=== PATIENT | female | born 1970 | race Caucasian/White ===

== ENCOUNTER 2017-06-27 00:58 | Emergency (ER) | payer SELFPAY ==
--- NOTE | 2017-06-27 01:19 | ED.PDOC ---
History of Present Illness - General Chief Complaint: Upper Extremity Injury Stated Complaint: left arm pain with chest pain Time Seen by Provider: 06/27/17 01:15 Source: patient, RN notes reviewed, Vital Signs reviewed Additional Information: Pt states she needs a work excuse for Wednesday and Wednesday. 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 She says she has been dealing with this pain for about 2 weeks and sometimes it radiates to her chest, making it hard to breathe. Currently her main complaint is left elbow pain. - History of Present Illness Timing/Duration: other - about 2 weeks Severity: moderate Improving Factors: nothing Worsening Factors: movement - and lifting Associated Symptoms: chest pain - occasionally, shortness of breath - occasionally Allergies/Adverse Reactions: Allergies NO KNOWN ALLERGY Allergy (Verified 06/27/17 01:58) Home Medications: Ambulatory Orders predniSONE 40 mg PO DAILY 5 Days #10 tab 06/27/17 Review of Systems - Review of Systems Constitutional: States: no symptoms reported EENTM: States: no symptoms reported Respiratory: States: no symptoms reported Cardiology: States: no symptoms reported - currently, chest pain - on occasion Gastrointestinal/Abdominal: States: no symptoms reported Genitourinary: States: no symptoms reported Musculoskeletal: States: see HPI - left elbow pain Skin: States: no symptoms reported Neurological: States: no symptoms reported Endocrine: States: no symptoms reported Hematologic/Lymphatic: States: no symptoms reported Past Medical History (General) - Patient Medical History Hx Seizures: No Hx Stroke: No Hx Dementia: No Hx Asthma: No Hx of COPD: No Hx Cardiac Disorders: No Hx Congestive Heart Failure: No Hx Pacemaker: No Hx Hypertension: No Hx Thyroid Disease: No Hx Diabetes: No Hx Gastroesophageal Reflux: No Hx Renal Disease: No Hx Cancer: No Hx of HIV: No Hx Hepatitis C: No Hx MRSA: No Hx Other PMH: Yes - Patient reports she has been diagnosed with Rheumatoid Arthritis - Vaccination History Hx Tetanus, Diphtheria Vaccination: No Hx Influenza Vaccination: No Hx Pneumococcal Vaccination: No - Social History Hx Tobacco Use: No Hx Alcohol Use: No Hx Substance Use: No Hx Substance Use Treatment: No Hx Depression: No Hx Physical Abuse: No Hx Emotional Abuse: No Hx Suspected Abuse: No - Female History Patient : No Family Medical History - Family History Mother Living Status: Still Living Hx Family Hypertension: Yes Physical Exam - Physical Exam General Appearance: No apparent distress - at rest, Obese Eye Exam: bilateral normal Ears, Nose, Throat: hearing grossly normal, normal ENT inspection, normal pharynx Neck: non-tender, full range of motion, supple, normal inspection Respiratory: normal breath sounds, no respiratory distress, no accessory muscle use Cardiovascular/Chest: normal peripheral pulses, regular rate, rhythm Gastrointestinal/Abdominal: non tender, soft Back Exam: normal inspection, no CVA tenderness Extremity: normal range of motion, normal inspection, other - Mild Tender to Palpation left elbow. Neurologic: medical technologist II-XII nml as tested, no motor/sensory deficits, alert, normal mood/affect, oriented x 3 Skin Exam: normal color, warm/dry Lymphatic: no adenopathy Progress - Progress Progress: 06/27/17 01:22 Suspect MSK etiology of symptoms. However, given occasional c/o Chest pain and SOB will assess for cardiovascular etiology with d-dimer, cardiac enzymes, and CXR. If essentially normal will treat with steroid burst given history of RA. 06/27/17 02:12 Labs and CXR normal. Will d/c with Rx for Prednisone burst and a work excuse. 06/27/17 02:15 CXR Report: Official report pending. My impression - No acute cardiopulmonary process noted. - Results/Orders Results/Orders: 06/27/17 01:16 ESR [ERYTHROCYTE SEDIMENTATION RATE] Stat Chest,2 Views [RAD] Stat Laboratory Results - last 24 hr 06/27/17 06/27/17 06/27/17 01:16 01:16 01:16 WBC 6.7 RBC 4.70 Hgb 14.2 Hct 41.3 MCV 88.0 MCH 30.2 MCHC 34.3 RDW 15.5 H Plt Count 263 MPV 7.6 Absolute Neuts (auto) 4.20 Absolute Lymphs (auto) 1.80 Absolute Monos (auto) 0.50 Absolute Eos (auto) 0.10 Absolute Basos (auto) 0.00 Neutrophils % 62.8 Lymphocytes % 26.8 Monocytes % 8.0 Eosinophils % 1.7 Basophils % 0.7 D-Dimer, Quantitative < 230 Sodium 138 Potassium 4.2 Chloride 102 Carbon Dioxide 28 Anion Gap 12.2 BUN 14 Creatinine 1.01 BUN/Creatinine Ratio 13.9 Random Glucose 123 H Serum Osmolality 277.5 Calcium 9.2 Total Bilirubin 0.5 AST 28 ALT 32 Alkaline Phosphatase 61 Creatine Kinase CK-MB (CK-2) CK-MB (CK-2) % Troponin I C-Reactive Protein 0.8 Serum Total Protein 7.5 Albumin 4.1 Globulin 3.4 Albumin/Globulin Ratio 1.2 06/27/17 01:17 WBC RBC Hgb Hct MCV MCH MCHC RDW Plt Count MPV Absolute Neuts (auto) Absolute Lymphs (auto) Absolute Monos (auto) Absolute Eos (auto) Absolute Basos (auto) Neutrophils % Lymphocytes % Monocytes % Eosinophils % Basophils % D-Dimer, Quantitative Sodium Potassium Chloride Carbon Dioxide Anion Gap BUN Creatinine BUN/Creatinine Ratio Random Glucose Serum Osmolality Calcium Total Bilirubin AST ALT Alkaline Phosphatase Creatine Kinase 107 CK-MB (CK-2) 2.4 CK-MB (CK-2) % Not Reportable Troponin I < 0.02 C-Reactive Protein Serum Total Protein Albumin Globulin Albumin/Globulin Ratio 06/27/17 01:05 Temperature 98.8 F Pulse Rate [ 84 monitor] Respiratory 16 Rate Blood Pressure 146/85 [Right Arm] O2 Sat by Pulse 100 Oximetry Departure - Departure Clinical Impression: Left elbow pain Time of Disposition: 02:24 Disposition: Discharge to Home or Self Care Condition: Good Departure Forms: ED Discharge - Pt. Copy, Patient Portal Self Enrollment Instructions: DI for Arm Pain Prescriptions: predniSONE 40 mg PO DAILY 5 Days #10 tab Home Medications: Ambulatory Orders predniSONE 40 mg PO DAILY 5 Days #10 tab 06/27/17 Additional Instructions: Work Excuse for Wednesday and Wednesday. Take medicine as prescribed. Follow-up with Primary Care Provider if symptoms persist in 3 to 5 days or return to ER sooner if condition worsens.
[2017-06-27 01:58] VITALS: BP 146/85; TEMP 98.8; O2SAT 100
--- NOTE | 2017-06-27 02:42 | RAD ---
EXAM DESCRIPTION: Chest,2 Views CLINICAL HISTORY: chest pain COMPARISON: 06/11/2016 FINDINGS: Frontal and lateral views of the chest. The cardiomediastinal silhouette has normal size and contour. No consolidation, pneumothorax, or pleural effusion. No displaced rib fractures identified. Upper abdominal soft tissues are unremarkable. IMPRESSION: 1. No acute pulmonary process identified. Electronically signed by: Milton Kellogg 06/27/2017 2:41 AM [facility]
== END 2017-06-27 02:32 | disposition home or self-care (01) ==
LOC: ER 00:58
DX: M25.522 Pain in left elbow (principal); M06.9 Rheumatoid arthritis, unspecified; R07.9 Chest pain, unspecified

== ENCOUNTER 2018-06-19 12:22 | Emergency (ER) | payer SELFPAY ==
--- NOTE | 2018-06-19 13:31 | ED.PDOC ---
History of Present Illness - General Chief Complaint: Skin/Abrasion/Tear Stated Complaint: skin eruption Time Seen by Provider: 06/19/18 13:25 Source: patient Exam Limitations: no limitations - History of Present Illness Initial Comments: Carlyn Thayer 48 y/o female stated that she has Rheumatoid Arthritis since 2009 not on any treatment couldn't afford cost came to ER with skin braek out for the last 1 1/2 months seen at urgent care and was given Bactrim -DS which temporarily made the redness go away but lesion recurred again and also for the last 4 days has some chest and neck discomfort as well as not feeling well. Timing/Duration: other - see hpi Severity: moderate Improving Factors: nothing Worsening Factors: nothing Associated Symptoms: other - see hpi Allergies/Adverse Reactions: Allergies NO KNOWN ALLERGY Allergy (Verified 06/27/17 01:58) Home Medications: Ambulatory Orders Aspirin-Caffeine [Bc Fast Pain Relief Arthr 1000-65 mg] 1 pow PO DAILY PRN 06/19/18 Bismuth Subsalicylate [Pepto-Bismol] 262 mg PO BID PRN 06/19/18 Doxycycline Hyclate 100 mg PO BID 10 Days #20 cap 06/19/18 Terbinafine HCl [Lamisil] 250 mg PO DAILY 14 Days #14 tab 06/19/18 Review of Systems - Review of Systems Constitutional: States: see HPI, malaise Cardiology: States: see HPI Skin: States: see HPI All other Systems: Reviewed and Negative, No Change from Baseline Past Medical History (General) - Patient Medical History Hx Seizures: No Hx Stroke: No Hx Dementia: No Hx Asthma: No Hx of COPD: No Hx Cardiac Disorders: No Hx Congestive Heart Failure: No Hx Pacemaker: No Hx Hypertension: No Hx Thyroid Disease: No Hx Diabetes: No Hx Gastroesophageal Reflux: No Hx Renal Disease: No Hx Cancer: No Hx of HIV: No Hx Hepatitis C: No Hx MRSA: No Hx Other PMH: Yes - Rheumatoid arthritis Surgical History: other - btl - Vaccination History Hx Tetanus, Diphtheria Vaccination: No Hx Influenza Vaccination: No Hx Pneumococcal Vaccination: No - Social History Hx Tobacco Use: No Hx Alcohol Use: No Hx Substance Use: No Hx Substance Use Treatment: No Hx Depression: No Hx Physical Abuse: No Hx Emotional Abuse: No Hx Suspected Abuse: No - Female History Patient is a Female of Child Bearing Age (10 -59 yrs old): Yes Hx Last Menstrual Period: 06/11/18 Patient : No Family Medical History - Family History Mother Living Status: Still Living Hx Family Hypertension: Yes Hx Family;Other: rheumatoid arthritis Physical Exam - Physical Exam General Appearance: Alert, Comfortable, No apparent distress Eye Exam: bilateral normal Ears, Nose, Throat: hearing grossly normal, normal ENT inspection, normal pharynx Neck: supple, normal inspection Respiratory: chest non-tender, lungs clear, normal breath sounds Cardiovascular/Chest: normal peripheral pulses, regular rate, rhythm, no murmur, other - breast-No breast mass palpated bilaterally,no adenopathy axillary bilaterally Peripheral Pulses: radial,right: 2+, radial,left: 2+ Gastrointestinal/Abdominal: normal bowel sounds, non tender, soft Back Exam: no CVA tenderness, no vertebral tenderness Extremity: no pedal edema, no calf tenderness Neurologic: alert, oriented x 3 Skin Exam: normal color, warm/dry, other - cicular erythemaous skin eruption with cental scabbing pustular drainage breast,chest and abdomen Progress - Progress Progress: 06/19/18 13:36 Vital Signs - 8 hr 06/19/18 12:30 Temperature 98.1 F Pulse Rate [ 76 Left Arm] Respiratory 20 Rate Blood Pressure 161/115 [Left Arm] O2 Sat by Pulse 99 Oximetry - Results/Orders Results/Orders: 06/19/18 13:36 URINALYSIS Stat 06/19/18 13:45 EKG STAT Laboratory Results - last 24 hr 06/19/18 13:50 WBC 7.2 RBC 4.70 Hgb 13.9 Hct 41.0 MCV 87.3 MCH 29.5 MCHC 33.8 RDW 15.8 H Plt Count 243 MPV 7.5 Absolute Neuts (auto) 4.80 Absolute Lymphs (auto) 1.50 Absolute Monos (auto) 0.70 Absolute Eos (auto) 0.10 Absolute Basos (auto) 0.10 Neutrophils % 67.3 Lymphocytes % 20.9 Monocytes % 9.1 H Eosinophils % 1.7 Basophils % 1.0 PT 9.2 INR 0.92 PTT (SP) 24.7 Sodium 139 Potassium 4.1 Chloride 105 Carbon Dioxide 28 Anion Gap 10.1 L BUN 19 H Creatinine 0.84 BUN/Creatinine Ratio 22.6 H Random Glucose 109 H Serum Osmolality 280.4 Calcium 9.3 Magnesium 1.8 Total Bilirubin 0.5 Direct Bilirubin < 0.1 Indirect Bilirubin 0.4 AST 23 ALT 26 Alkaline Phosphatase 77 Creatine Kinase 112 CK-MB (CK-2) 3.2 CK-MB (CK-2) % Not Reportable Troponin I < 0.02 B-Natriuretic Peptide 8.7 Serum Total Protein 7.4 Albumin 3.9 Discuus all test result with patient and advised the importance of follow up with primary Md for referral to set up mechanic automatic line and medical logistics specialist - EKG/XRAY/CT EKG: Sinus, no ST T wave changes Comments: HR-68 XRAY: chest - no acute abnormality Departure - Departure Clinical Impression: Skin lesion of chest wall, History of rheumatoid arthritis, Chest wall discomfort Time of Disposition: 14:43 Disposition: Discharge to Home or Self Care Condition: Fair Departure Forms: ED Discharge - Pt. Copy, Patient Portal Self Enrollment Instructions: Skin Rash (DC), Rheumatoid Arthritis (DC), Rheumatoid Arthritis Prescriptions: Doxycycline Hyclate 100 mg PO BID 10 Days #20 cap Terbinafine HCl [Lamisil] 250 mg PO DAILY 14 Days #14 tab Home Medications: Ambulatory Orders Aspirin-Caffeine [Bc Fast Pain Relief Arthr 1000-65 mg] 1 pow PO DAILY PRN 06/19/18 Bismuth Subsalicylate [Pepto-Bismol] 262 mg PO BID PRN 06/19/18 Doxycycline Hyclate 100 mg PO BID 10 Days #20 cap 06/19/18 Terbinafine HCl [Lamisil] 250 mg PO DAILY 14 Days #14 tab 06/19/18 Additional Instructions: Need to sign up with primary Md [facility] [phone] for referral to medical logistics specialist and set up mechanic automatic line
--- NOTE | 2018-06-19 14:13 | RAD ---
EXAM DESCRIPTION: Chest,1 View CLINICAL HISTORY: 48 years Female pain COMPARISON: Two-view chest 06/19/2018 TECHNIQUE: A single frontal projection of the chest is obtained. FINDINGS: Heart: Allowing for magnification factors related to AP portable technique and large body habitus , the heart is normal in size and configuration . Vasculature: There is minimal tortuosity and atherosclerosis of the aorta. . The pulmonary vascularity is normal. Mediastinum: Unremarkable []. No evidence of mass or adenopathy. Lungs: The lungs are essentially clear with no focal consolidation, allowing for underpenetrated technique. Pleural spaces: No evidence of pleural fluid or pneumothorax. Osseous structures: There is no evidence of acute fracture, osseous destruction or osteoblastic lesions. Tubes and catheters: None. Upper abdomen: No acute findings. IMPRESSION: No acute cardiopulmonary abnormality. Remainder of findings as described above. Electronically signed by: Moriah Bennett MD 06/19/2018 2:11 PM [facility]
[2018-06-19 14:41] VITALS: BP 120/70; TEMP 97.5; O2SAT 95
== END 2018-06-19 14:55 | disposition home or self-care (01) ==
LOC: ER 12:22
DX: L98.9 Disorder of the skin and subcutaneous tissue, unspecified (principal); R07.1 Chest pain on breathing; M06.9 Rheumatoid arthritis, unspecified; M54.2 Cervicalgia

== ENCOUNTER 2018-07-16 10:14 | Emergency (ER) | payer SELFPAY ==
--- NOTE | 2018-07-16 11:14 | RAD ---
EXAM DESCRIPTION: Chest,2 Views CLINICAL HISTORY: 48 years Female, skin ulcers, nodules over chest COMPARISON: Portable chest dated June 19, 2018 and 2 view chest dated June 27, 2017. FINDINGS: Heart size is normal. Hilar and mediastinal structures appear within normal limits. The lungs are clear. No evidence of pleural effusion. Regional bony structures appear intact as visualized, with note of minimal chronic changes in the dorsal spine. No significant interval change is seen compared to the last exam. IMPRESSION: No evidence of acute cardiopulmonary disease. Electronically signed by: Parag Burgess MD 07/16/2018 11:13 AM [facility]
[2018-07-16] MEDS ORDERED: LIDOCAINE 1% W/ EPINEPHRINE 20 ML VIAL INJ ONE (11:37)
[2018-07-16] MEDS ORDERED: IODOFORM 1/4 INCH 1 EA BTTL TOP ONE (11:38)
[2018-07-16] MEDS ORDERED: HYDROcodone 7.5MG/APAP 325MG 1 EA TAB PO ONE (11:41)
[2018-07-16] MEDS ORDERED: PENICILLIN BENZATHINE 1.2 MU 1.2 MU/2 ML SYG IM ONE (11:55)
[2018-07-16] MEDS ORDERED: VANCOMYCIN HCL INJ 2,000 MG in SODIUM CHLORIDE 0.9% 500ML 500 ML IVPB ONE (11:56)
[2018-07-16] MEDS ORDERED: VANCOMYCIN HCL INJ 1,000 MG VIAL IVPB ONE (11:59)
[2018-07-16] MEDS ORDERED: SODIUM CHLORIDE 0.9% 500ML 500 ML ONE (11:59)
[2018-07-16] MEDS ORDERED: FLUCONAZOLE 100 MG TAB PO ONE (13:18)
[2018-07-16 14:37] VITALS: TEMP 98.4
--- NOTE | 2018-07-16 15:14 | ED.PDOC ---
History of Present Illness - General Chief Complaint: Skin/Abrasion/Tear Stated Complaint: Multiple skin irritations Time Seen by Provider: 07/16/18 10:35 Source: patient Exam Limitations: no limitations - History of Present Illness Initial Comments: the patient is a 48-year-old female presenting to the emergency room secondary to numerous skin lesions along with starting to feel better in general over the last 24 hours. The patient has had a skin lesion to the right breast for the last 2-3 weeks that appears to be a drying up ulcer at this point. However additionally over the last week she has had formation of a small area of cellulitis at the tip of her right shoulder as well as a large area approximately 12 cm in diameter over the left upper chest wall.this area does appear to have a small amount of fluctuance and abscess formation by ultrasound. The patient reports she has a history of rheumatoid arthritis. Timing/Duration: unsure Severity: moderate Improving Factors: nothing Worsening Factors: nothing Associated Symptoms: denies symptoms Allergies/Adverse Reactions: Allergies NO KNOWN ALLERGY Allergy (Verified 06/27/17 01:58) Home Medications: Ambulatory Orders Sulfa/Trimeth 800/160 (Ds) Tab [Bactrim DS Tab] 1 ea PO BID #28 tab 07/16/18 rifAMPin [Rifampin] 300 mg PO BID #28 cap 07/16/18 Review of Systems - Review of Systems Constitutional: States: malaise EENTM: States: no symptoms reported Respiratory: States: no symptoms reported Cardiology: States: no symptoms reported Gastrointestinal/Abdominal: States: no symptoms reported Genitourinary: States: no symptoms reported Musculoskeletal: States: no symptoms reported Skin: States: see HPI Neurological: States: no symptoms reported Endocrine: States: no symptoms reported All other Systems: No Change from Baseline Past Medical History (General) - Patient Medical History Hx Seizures: No Hx Stroke: No Hx Dementia: No Hx Asthma: No Hx of COPD: No Hx Cardiac Disorders: No Hx Congestive Heart Failure: No Hx Pacemaker: No Hx Hypertension: Yes Hx Thyroid Disease: No Hx Diabetes: No Hx Gastroesophageal Reflux: Yes Hx Renal Disease: No Hx Cancer: No Hx of HIV: No Hx Hepatitis C: No Hx MRSA: No Surgical History: other - Vaccination History Hx Tetanus, Diphtheria Vaccination: No Hx Influenza Vaccination: Yes - 2018 Hx Pneumococcal Vaccination: No - Social History Hx Tobacco Use: Yes Hx Alcohol Use: Yes - Occasional use Hx Substance Use: No Hx Substance Use Treatment: No Hx Depression: No Hx Physical Abuse: No Hx Emotional Abuse: No Hx Suspected Abuse: No - Female History Patient is a Female of Child Bearing Age (10 -59 yrs old): Yes Hx Last Menstrual Period: 06/11/18 Patient : No Family Medical History - Family History Mother Living Status: Still Living Hx Family Hypertension: Yes Hx Family;Other: rheumatoid arthritis Physical Exam - Physical Exam General Appearance: Alert, Comfortable, No apparent distress Eye Exam: bilateral normal Ears, Nose, Throat: hearing grossly normal, normal ENT inspection, normal pharynx Neck: full range of motion, supple Respiratory: lungs clear, normal breath sounds, no respiratory distress, no acc essory muscle use Cardiovascular/Chest: normal peripheral pulses, regular rate, rhythm, no edema Peripheral Pulses: radial,right: 2+, radial,left: 2+, dorsalis pedis,right: 2+, dorsalis pedis,left: 2+ Gastrointestinal/Abdominal: non tender, soft Rectal Exam: deferred Back Exam: no CVA tenderness, no vertebral tenderness Extremity: normal range of motion, non-tender, normal inspection, no pedal edema Neurologic: orthotics assistant II-XII nml as tested, alert, normal mood/affect, oriented x 3 Skin Exam: other - there is a cellulitis involving the right shoulder, left upper chest small area of cellulitis to the left lower back and healing cellulitis to the right breast with residual ulcer. Comments: Vital Signs - 24 hr 07/16/18 07/16/18 07/16/18 10:25 11:25 12:21 Temperature 99.4 F 99.0 F 98.9 F Pulse Rate [ 66 68 66 Right Arm] Respiratory 16 16 18 Rate Blood Pressure 120/97 125/79 116/69 [Right Arm] O2 Sat by Pulse 96 97 97 Oximetry 07/16/18 07/16/18 13:25 14:25 Temperature 98.9 F 98.4 F Pulse Rate [ 61 86 Right Arm] Respiratory 18 18 Rate Blood Pressure 110/59 118/82 [Right Arm] O2 Sat by Pulse 98 97 Oximetry Progress - Progress Progress: 07/16/18 15:15 the patient is a 48-year-old female presenting to the emergency room with multiple areas of cellulitis and 1 area associated with an abscess to the left anterior chest. Blood culture has been taken. Needle aspiration of the small abscess with extensive surrounding cellulitis of the left upper chest is being sent for culture. The patient has received a dose of Bicillin LA here IM and a dose of IV vancomycin here. She is going to be written for Bactrim twice daily and rifampin twice daily for 14 days given the duration of her apparent infection. If the ulcer is failing to improve over the next couple of weeks then a biopsy with a primary care doctor or fundraising director may need to be done. I do recommend that she use Neosporin ointment on the ulcer 3 times daily, and cover it with a Band-Aid. She has been encouraged to trace out the edges of the redness to her left anterior chest wall to make sure it is improving over the next few days. Additionally she can take a picture with her smart phone to make sure that it is improving. She has been informed that given the extensive area of cellulitis, a new abscess may go ahead and form in the area in spite of adequate antibiotic use. If that becomes the case then it will need to be drained as well. ER warnings were given for any worsening. follow-up with your primary care doctor later this week. residual note: Risks and benefits of incision and drainage are explained and patient agrees to proceed. Ultrasound was used prior to anju the site for incision. The area was cleaned with alcohol swab. #15 blade scalpel was used to make a 1-1/2 cm incision. Hemostats were used to dissect down to the level of the abscess. Only about 2-3 cc of pus were obtained. No packing is required. Dressing was put in place. Patient tolerated the procedure well. Estimated blood loss less than 3 cc. - Results/Orders Results/Orders: Vital Signs - 24 hr 07/16/18 07/16/18 07/16/18 10:25 11:25 12:21 Temperature 99.4 F 99.0 F 98.9 F Pulse Rate [ 66 68 66 Right Arm] Respiratory 16 16 18 Rate Blood Pressure 120/97 125/79 116/69 [Right Arm] O2 Sat by Pulse 96 97 97 Oximetry 07/16/18 07/16/18 13:25 14:25 Temperature 98.9 F 98.4 F Pulse Rate [ 61 86 Right Arm] Respiratory 18 18 Rate Blood Pressure 110/59 118/82 [Right Arm] O2 Sat by Pulse 98 97 Oximetry Laboratory Tests 07/16/18 07/16/18 07/16/18 10:46 10:46 10:46 WBC 15.0 H RBC 4.56 Hgb 13.4 Hct 40.2 MCV 88.1 MCH 29.4 MCHC 33.3 RDW 15.3 H Plt Count 275 MPV 7.7 Absolute Neuts (auto) 12.00 H Absolute Lymphs (auto) 1.80 Absolute Monos (auto) 1.20 H Absolute Eos (auto) 0.00 Absolute Basos (auto) 0.10 Neutrophils % 79.9 H Lymphocytes % 11.8 L Monocytes % 7.8 Eosinophils % 0.1 L Basophils % 0.4 PT 9.8 INR 0.98 PTT (SP) 28.1 D-Dimer, Quantitative 0.57 H* Sodium 135 Potassium 3.8 Chloride 100 L Carbon Dioxide 25 Anion Gap 13.8 BUN 10 Creatinine 0.73 BUN/Creatinine Ratio 13.7 Random Glucose 100 Serum Osmolality 269.2 L Calcium 8.9 Total Bilirubin 0.8 AST 41 ALT 46 Alkaline Phosphatase 78 Serum Total Protein 7.4 Albumin 3.7 Globulin 3.7 H Albumin/Globulin Ratio 1.0 L TSH 4.45 Urine Color Urine Appearance Urine pH Ur Specific Ilfeld Urine Protein Urine Glucose (UA) Urine Ketones Urine Blood Urine Nitrite Urine Bilirubin Urine Urobilinogen Ur Leukocyte Esterase Urine RBC Urine WBC Ur Epithelial Cells Urine Bacteria Urine Mucus Urine HCG, Qual 07/16/18 07/16/18 10:46 11:20 WBC RBC Hgb Hct MCV MCH MCHC RDW Plt Count MPV Absolute Neuts (auto) Absolute Lymphs (auto) Absolute Monos (auto) Absolute Eos (auto) Absolute Basos (auto) Neutrophils % Lymphocytes % Monocytes % Eosinophils % Basophils % PT INR PTT (SP) D-Dimer, Quantitative Sodium Potassium Chloride Carbon Dioxide Anion Gap BUN Creatinine BUN/Creatinine Ratio Random Glucose Serum Osmolality Calcium Total Bilirubin AST ALT Alkaline Phosphatase Serum Total Protein Albumin Globulin Albumin/Globulin Ratio TSH Urine Color Khushboo H Urine Appearance Clear Urine pH 5.5 Ur Specific Ilfeld 1.025 Urine Protein Negative Urine Glucose (UA) Negative Urine Ketones 80 H Urine Blood Negative Urine Nitrite Negative Urine Bilirubin Small H Urine Urobilinogen 1.0 Ur Leukocyte Esterase Negative Urine RBC 0 Urine WBC 0 Ur Epithelial Cells 1-3 Urine Bacteria 0 Urine Mucus Small Urine HCG, Qual Negative chest x-ray shows no evidence of acute pathology. Departure - Departure Clinical Impression: Skin lesion of chest wall Disposition: Discharge to Home or Self Care Condition: Fair Departure Forms: ED Discharge - Pt. Copy, Patient Portal Self Enrollment Instructions: DI for Wound Infection Diet: regular diet Activity: increase activity as tolerated Prescriptions: rifAMPin [Rifampin] 300 mg PO BID #28 cap Sulfa/Trimeth 800/160 (Ds) Tab [Bactrim DS Tab] 1 ea PO BID #28 tab Home Medications: Ambulatory Orders Sulfa/Trimeth 800/160 (Ds) Tab [Bactrim DS Tab] 1 ea PO BID #28 tab 07/16/18 rifAMPin [Rifampin] 300 mg PO BID #28 cap 07/16/18 Additional Instructions: the patient is a 48-year-old female presenting to the emergency room with multiple areas of cellulitis and 1 area associated with an abscess to the left anterior chest. Blood culture has been taken. Needle aspiration of the small abscess with extensive surrounding cellulitis of the left upper chest is being sent for culture. The patient has received a dose of Bicillin LA here IM and a dose of IV vancomycin here. She is going to be written for Bactrim twice daily and rifampin twice daily for 14 days given the duration of her apparent infection. If the ulcer is failing to improve over the next couple of weeks then a biopsy with a primary care doctor or fundraising director may need to be done. I do recommend that she use Neosporin ointment on the ulcer 3 times daily, and cover it with a Band-Aid. She has been encouraged to trace out the edges of the redness to her left anterior chest wall to make sure it is improving over the next few days. Additionally she can take a picture with her smart phone to make sure that it is improving. She has been informed that given the extensive area of cellulitis, a new abscess may go ahead and form in the area in spite of adequate antibiotic use. If that becomes the case then it will need to be drained as well. ER warnings were given for any worsening. follow-up with your primary care doctor later this week. antibiotics are selected for staph and strep coverage which are the most likely pathogens. Cultures are being performed.
[2018-07-16 15:15] VITALS: BP 103/61; O2SAT 99
== END 2018-07-16 15:25 | disposition home or self-care (01) ==
LOC: ER 10:14
DX: L02.213 Cutaneous abscess of chest wall (principal); L03.113 Cellulitis of right upper limb; L03.312 Cellulitis of back [any part except buttock and flank]; N61.0 Mastitis without abscess; I10 Essential (primary) hypertension; K21.9 Gastro-esophageal reflux disease without esophagitis; M06.9 Rheumatoid arthritis, unspecified; Z87.891 Personal history of nicotine dependence
CPT/HCPCS: 36415; 71046; 80053; 81001; 81025; 84443; 85025; 85379; 85610; 85730; 87040; 87070; J0561; J3370; J7040

== ENCOUNTER 2019-09-22 18:23 | Emergency (ER) | payer SELFPAY ==
--- NOTE | 2019-09-22 18:47 | ED.PDOC ---
History of Present Illness - General Time Seen by Provider: 09/22/19 18:28 - History of Present Illness Initial Comments: 49 yo F PMH Rheumatoid Arthritis presents to ED c/o cough congestion sore throat intermittent nausea x 3 days. Pt. on her menses denies fever chills vomiting diarrhea chest pain sob diaphoresis. No change in diet cough disturbs rest no change in bowel or bladder admits smoking vaping and drinking admits FH HTN DM has no PMD for follow up no other c/o today. Allergies/Adverse Reactions: Allergies NO KNOWN ALLERGY Allergy (Verified 09/22/19 19:00) Home Medications: Ambulatory Orders Sulfa/Trimeth 800/160 (Ds) Tab [Bactrim DS Tab] 1 ea PO BID #28 tab 07/16/18 rifAMPin [Rifampin] 300 mg PO BID #28 cap 07/16/18 Acetaminophen [Tylenol] 650 mg PO Q6H PRN #30 tab 09/22/19 Azithromycin Tab [Zithromax Tab] 250 mg PO QDPC 5 Days #6 tab 09/22/19 Ibuprofen 600 mg PO Q6H PRN #20 tab 09/22/19 Prednisone 40 mg PO DAILY 5 Days #10 tab 09/22/19 Review of Systems - Review of Systems Constitutional: States: see HPI EENTM: States: see HPI Respiratory: States: see HPI Cardiology: States: see HPI Gastrointestinal/Abdominal: States: see HPI Genitourinary: States: see HPI Musculoskeletal: States: see HPI Skin: States: see HPI Neurological: States: see HPI Endocrine: States: see HPI All other Systems: Reviewed and Negative Past Medical History (General) - Patient Medical History Hx Seizures: No Hx Stroke: No Hx Dementia: No Hx Asthma: No Hx of COPD: No Hx Cardiac Disorders: No Hx Congestive Heart Failure: No Hx Pacemaker: No Hx Hypertension: Yes Hx Thyroid Disease: No Hx Diabetes: No Hx Gastroesophageal Reflux: Yes Hx Renal Disease: No Hx Cancer: No Hx of HIV: No Hx Hepatitis C: No Hx MRSA: No - Vaccination History Hx Tetanus, Diphtheria Vaccination: No Hx Influenza Vaccination: Yes - 2018 Hx Pneumococcal Vaccination: No - Social History Hx Tobacco Use: Yes Hx Alcohol Use: Yes - Occasional use Hx Substance Use: No Hx Substance Use Treatment: No Hx Depression: No Hx Physical Abuse: No Hx Emotional Abuse: No Hx Suspected Abuse: No - Female History Hx Last Menstrual Period: 06/11/18 Patient : No Family Medical History - Family History Mother Living Status: Still Living Hx Family Hypertension: Yes Hx Family;Other: rheumatoid arthritis Physical Exam - Physical Exam General Appearance: No apparent distress Eye Exam: bilateral normal Ears, Nose, Throat: normal ENT inspection, pharyngeal erythema Neck: non-tender, full range of motion Respiratory: normal breath sounds Cardiovascular/Chest: regular rate, rhythm Gastrointestinal/Abdominal: non tender, soft Rectal Exam: deferred Back Exam: normal inspection Extremity: normal range of motion, non-tender Neurologic: no motor/sensory deficits Skin Exam: normal color Progress - Progress Progress: 09/22/19 18:47 A/P-Pharyngitis Cough URI-cxr upreg tylenol zofran flu strep if unremarkable d/c follow up pcp tylenol ibuprofen prednisone azithromycin for the pharyngitis 09/22/19 19:21 EXAM DESCRIPTION: XR Chest,1 View CLINICAL HISTORY: cough TECHNIQUE: Single frontal view of the chest is submitted. COMPARISON: 07/16/2018 FINDINGS: Heart: The cardiothoracic silhouette is within normal limits. Lungs: No focal consolidation. Mediastinum: Unremarkable Pleura: No appreciable effusion. No pneumothorax. Bones: Intact Upper abdomen: Unremarkable IMPRESSION: No acute disease. Electronically signed by: Sully Mace MD 09/22/2019 7:03 PM CDT 09/22/19 19:59 Laboratory Tests 09/22/19 09/22/19 18:59 19:18 Urine HCG, Qual Negative Group A Strep Rapid Negative Departure - Departure Clinical Impression: Cough Pharyngitis Qualifiers: Pharyngitis/tonsillitis etiology: unspecified etiology Qualified Code(s): J02.9 - Acute pharyngitis, unspecified Upper respiratory infection Qualifiers: URI type: unspecified URI Qualified Code(s): J06.9 - Acute upper respiratory infection, unspecified Time of Disposition: 20:02 Disposition: Discharge to Home or Self Care Condition: Good Referrals: Seven Carr MD [Active Staff] - 1-2 Days Prescriptions: Acetaminophen [Tylenol] 650 mg PO Q6H PRN #30 tab PRN Reason: Pain Azithromycin Tab [Zithromax Tab] 250 mg PO QDPC 5 Days #6 tab Ibuprofen 600 mg PO Q6H PRN #20 tab PRN Reason: Pain Prednisone 40 mg PO DAILY 5 Days #10 tab Home Medications: Ambulatory Orders Sulfa/Trimeth 800/160 (Ds) Tab [Bactrim DS Tab] 1 ea PO BID #28 tab 07/16/18 rifAMPin [Rifampin] 300 mg PO BID #28 cap 07/16/18 Acetaminophen [Tylenol] 650 mg PO Q6H PRN #30 tab 09/22/19 Azithromycin Tab [Zithromax Tab] 250 mg PO QDPC 5 Days #6 tab 09/22/19 Ibuprofen 600 mg PO Q6H PRN #20 tab 09/22/19 Prednisone 40 mg PO DAILY 5 Days #10 tab 09/22/19
[2019-09-22] MEDS ORDERED: ACETAMINOPHEN 500 MG TAB PO ONE (18:48)
[2019-09-22] MEDS ORDERED: ONDANSETRON ODT 8 MG TAB SL ONE (18:57)
[2019-09-22 19:00] VITALS: TEMP 98.5
--- NOTE | 2019-09-22 19:05 | RAD ---
EXAM DESCRIPTION: XR Chest,1 View CLINICAL HISTORY: cough TECHNIQUE: Single frontal view of the chest is submitted. COMPARISON: 07/16/2018 FINDINGS: Heart: The cardiothoracic silhouette is within normal limits. Lungs: No focal consolidation. Mediastinum: Unremarkable Pleura: No appreciable effusion. No pneumothorax. Bones: Intact Upper abdomen: Unremarkable IMPRESSION: No acute disease. Electronically signed by: Sully Mace MD 09/22/2019 7:03 PM CDT
[2019-09-22 20:02] VITALS: BP 132/67; O2SAT 97
== END 2019-09-22 20:09 | disposition home or self-care (01) ==
LOC: ER 18:23
DX: J06.9 Acute upper respiratory infection, unspecified (principal); K21.9 Gastro-esophageal reflux disease without esophagitis; I10 Essential (primary) hypertension; F17.290 Nicotine dependence, other tobacco product, uncomplicated; M06.9 Rheumatoid arthritis, unspecified; Z87.891 Personal history of nicotine dependence; Z79.899 Other long term (current) drug therapy

== ENCOUNTER 2020-07-26 12:26 | Emergency (ER) | payer SELFPAY ==
[2020-07-26] MEDS ORDERED: ONDANSETRON ODT 8 MG TAB SL ONE (12:45)
--- NOTE | 2020-07-26 12:47 | ED.PDOC ---
History of Present Illness - General Time Seen by Provider: 07/26/20 12:27 Source: patient, RN notes reviewed, Vital Signs reviewed Exam Limitations: no limitations - History of Present Illness Comments: 50 yo F with hx of RA comes in with productive cough, shortness of breath, body aches, temperature 99.9, sore throat, change in taste. Works in [employer]. Had negative covid test last week. Has been feeling progressively worse for 4 days. Cough Quality/Degree: moderate, productive cough, sputum - yellow Possible Cause: no prior episodes Improving Factors: rest Worsening Factors: movement Associated Symptoms: fever/chills, headache, muscle aches, nasal congestion, nasal drainage, shortness of breath, sore throat Allergies/Adverse Reactions: Allergies NO KNOWN ALLERGY Allergy (Verified 07/26/20 13:25) Home Medications: Ambulatory Orders Penicillin V Potassium 500 mg PO BID 10 Days #20 tab 07/26/20 Review of Systems - Review of Systems Constitutional: States: fever, malaise, weakness. Denies: chills EENTM: States: nose congestion, throat pain. Denies: ear pain Respiratory: States: cough, short of breath Cardiology: Denies: chest pain, palpitations, syncope Gastrointestinal/Abdominal: States: nausea. Denies: abdominal pain, vomiting Genitourinary: Denies: hematuria Musculoskeletal: States: back pain, muscle pain Skin: Denies: rash Neurological: States: headache. Denies: numbness, paresthesia, weakness Endocrine: Denies: unexplained weight gain, unexplained weight loss Hematologic/Lymphatic: Denies: blood clots, easy bleeding, easy bruising Past Medical History (General) - Patient Medical History Hx Seizures: No Hx Stroke: No Hx Dementia: No Hx Asthma: No Hx of COPD: No Hx Cardiac Disorders: No Hx Congestive Heart Failure: No Hx Pacemaker: No Hx Hypertension: Yes Hx Thyroid Disease: No Hx Diabetes: No Hx Gastroesophageal Reflux: Yes Hx Renal Disease: No Hx Cancer: No Hx of HIV: No Hx Hepatitis C: No Hx MRSA: No Hx Other PMH: Yes - RA - Vaccination History Hx Tetanus, Diphtheria Vaccination: No Hx Influenza Vaccination: Yes - 2018 Hx Pneumococcal Vaccination: No - Social History Hx Tobacco Use: Yes Hx Alcohol Use: Yes - Occasional use Hx Substance Use: No Hx Substance Use Treatment: No Hx Depression: No Hx Physical Abuse: No Hx Emotional Abuse: No Hx Suspected Abuse: No - Female History Hx Last Menstrual Period: 06/11/18 Patient : No Family Medical History - Family History Mother Living Status: Still Living Hx Family Hypertension: Yes Hx Family;Other: rheumatoid arthritis Physical Exam - Physical Exam General Appearance: Alert, Comfortable, Obese, Well Developed, Well Groomed, Well Hydrated, Well Nourished Eye Exam: bilateral normal ENT Exam: hearing grossly normal, TMs normal, nasal congestion, nasal drainage, pharyngeal erythema Neck: non-tender, full range of motion, supple Respiratory: chest non-tender, lungs clear, normal breath sounds, no respiratory distress, no accessory muscle use, other - hacking cough noted Cardiovascular/Chest: normal peripheral pulses, no edema, no gallop, no JVD, no murmur, tachycardia - hr 101 Gastrointestinal/Abdominal: normal bowel sounds, non tender, soft, no organomegaly Extremity: normal range of motion, non-tender, normal inspection, no pedal edema, no calf tenderness, normal capillary refill Neurologic: no motor/sensory deficits, alert, normal mood/affect, oriented x 3 Skin Exam: normal color, warm/dry Progress - Progress Progress: 07/26/20 13:31 Partial ddx considered: strep, covid, flu, pneumonia, PE, others Patient given dexamethasone 8 mg for pharyngitis. Hr improved to 96. The data reviewed when caring for this patient included: nurse notes, prior records, etc. The history and assessments from nurses notes were reviewed and considered, and the patient's home medication list was also reviewed and considered. My assessment and the results of testing completed here in the ED were discussed with the patient/family. All questions were answered, and they express understanding of my assessment and the plan. They have been instructed to return if their symptoms worsen, and have been asked to follow up with their primary care physician to recheck today's presenting complaint. Strict return precautions given. I have reviewed medication, benefits, alternatives and side effects. Patient decided to proceed with medication. Ekta Mccoy DO #[id number] - EKG/XRAY/CT EKG: Sinus, Tachy - 107 Comments: normal intevals, no acute ischemia. XRAY: chest - no acute cardiopulmonary pathology. Departure - Departure Clinical Impression: COVID-19, Strep throat ICD-10 Supporting Text: Hypertension Time of Disposition: 13:28 Disposition: Discharge to Home or Self Care Departure Forms: ED Discharge - Pt. Copy, Patient Portal Self Enrollment Instructions: Sore Throat in Adults, Coronavirus Disease 2019 (COVID-19) Overview, Preventing the Spread of an Infectious Disease Diet: resume usual diet Activity: increase activity as tolerated Prescriptions: Penicillin V Potassium 500 mg PO BID 10 Days #20 tab Home Medications: Ambulatory Orders Penicillin V Potassium 500 mg PO BID 10 Days #20 tab 07/26/20
[2020-07-26] MEDS ORDERED: DEXAMETHASONE 4 MG TAB PO ONE (13:23)
[2020-07-26 13:46] VITALS: BP 153/100; TEMP 98.7; O2SAT 97
--- NOTE | 2020-07-26 13:52 | RAD ---
EXAM DESCRIPTION: Chest,1 View CLINICAL HISTORY: cough COMPARISON: September 22, 2019 FINDINGS: The cardiomediastinal silhouette is unremarkable. There is no airspace consolidation or pleural effusion. The bronchovascular markings are within normal limits, and the lungs are not hyperinflated. There is no pneumothorax or acute fracture. IMPRESSION: Negative exam. Electronically signed by: Ras Diana MD 07/26/2020 1:50 PM [facility]
== END 2020-07-26 13:38 | disposition home or self-care (01) ==
LOC: ER 12:26
DX: U07.1 COVID-19 (principal); J02.0 Streptococcal pharyngitis; R00.0 Tachycardia, unspecified; M06.9 Rheumatoid arthritis, unspecified; I10 Essential (primary) hypertension; K21.9 Gastro-esophageal reflux disease without esophagitis; Z87.891 Personal history of nicotine dependence
CPT/HCPCS: 71045; 87502; 87635; 87880; 93005; J8540